=== PATIENT | male | born 1960 | race Hispanic/Latino ===

== ENCOUNTER 2025-05-19 11:18 | Observation (INO) | payer OTHER ==
[~2025-05-19] VITALS: Ht 177.8 cm; Wt 94.3 kg
[2025-05-19 12:01] LABS: IMMATURE GRANULOCYTE ABSOLUTE 0.02 K/uL (0-1); NUCLEATED RED BLOOD CELLS 0.0 % (0.0-0.19); PLATELET COUNT (AUTO) 160 K/uL (130-400); RED BLOOD CELL COUNT(AUTO) 4.62 MIL/uL (4.50-6.20); RED CELL DISTRIBUTION WIDTH 13.2 % (11.0-15.5); WHITE BLOOD COUNT (AUTO) 7.1 K/uL (4.8-10.8)
[2025-05-19] MEDS: MAG/ALUM/SIMETH 30 ML UDCUP PO ONE (12:07)
--- NOTE | 2025-05-19 12:10 | EKG ---
[facility] Test Date: 2025-05-19 Test Time: 11:27:04 Pat Name: SOL RODRÍGUEZ Department: ED Room: 225 Gender: M [employer]afood [employer]or: [id number] : 1960 Requested By: CHRISTIANO GARCIA Order Number: [id number] Reading MD: Thierno Hernandez Measurements Intervals [place] Rate: 47 P: 22 DC: 166 QRS: 4 QRSD: 103 T: -17 QT: 423 QTc: 376 Interpretive Statements Sinus bradycardia No previous ECG available for comparison Electronically Signed On 05-19-2025 20:49:17 CDT by Thierno Hernandez Please click the below link to view image of tracing.
[2025-05-19 12:12] LABS: CREATININE 0.9 mg/dL (0.5-1.3); GLOMERULAR FILTR. RATE CALC 95.0 mL/min (>90); GLUCOSE,RANDOM 104.0 mg/dL (70-105); SODIUM SERUM 139.0 mmol/L (136-145); UREA NITROGEN, BLOOD 19.0 mg/dL (7-18)
[2025-05-19 12:14] LABS: INR 1.04 (0.85-1.15)
[2025-05-19 12:16] LABS: ASPARTATE AMINOTRANSFERASE 30.0 U/L (10-37); TOTAL PROTEIN, SERUM 6.8 g/dL (6.0-8.3)
--- NOTE | 2025-05-19 12:25 | HMCIMG ---
Examination: Chest, 1 view Clinical history: Chest pain Comparison: None Findings: AP view of the chest is submitted. Lungs are clear. No pleural effusion or pneumothorax. Heart size and pulmonary vessels are within normal limits. Impression: No acute cardiopulmonary process. /Holly
--- NOTE | 2025-05-19 14:00 | ERN ---
ED Note History of Present Illness Stated Complaint: BRADYCARDIA Chief Complaint: Bradycardia Time Seen by MD: 11:20 Dictation: 65-year-old male presenting to the emergency department with exertional chest pain epigastric burning over the past two days currently chest pain-free was seen in [facility] and also found to have high risk factors with low HR Allergies: Coded Allergies: No Known Drug Allergies (Unverified Allergy, Unknown, 05/19/25) Past Medical History Past Medical History: Anxiety, Depression, Diverticulosis, Hypertension Surgical History: None Review of System Dictation Constitutional: Negative for fever,chills, and weight loss Eyes: Negative for injury, pain,redness, and discharge ENT: Negative for injury,pain or swelling Cardiovascular: Per HPI Respiratory: Negative for shortness of breath, cough, and wheezing, Abdomen/GI: Negative for abdominal pain, nausea, vomiting, diarrhea, and constip ation Back: Negative for injury and pain : Negative for injury, bleeding and discharge MS/Extremity: Negative for injury and deformity Skin: Negative for rash, and discoloration Neuro: Negative for headache, weakness, numbness, tingling, and seizure Psych: Negative for suicide ideation, homicidal ideation, and hallucinations Initial Vital Sign VS Vital Signs Date Time Temp Pulse Resp B/P (MAP) Pulse Ox O2 Delivery O2 Flow Rate FiO2 05/19/25 11:19 98.1 60 19 152/84 95 Room Air 0 05/19/25 12:24 21 Physical Exam Dictation General: awake, alert, NAD Head/Face: Normocephalic, atraumatic Eyes: PERRL, EOMI, vision at baseline ENT: oral cavity clear, TMs clear, no signs of infection Neck: Trachea midline, supple, no nuchal rigidity Cardiovascular: Bradycardic normal S1/S2, No MRGs, no JVD Respiratory: CTAB, no respiratory distress, No rales or wheezes Abdomen: Soft, non-tender, non-distended, normal bowel sounds, no guarding or r ebound. Skin: Warm, dry, normal turgor, no rash MS/Extremity: Pulses equal, no cyanosis, neurovascular intact, FROM Neuro: COAx4, GCS 15, strength 5/5, CN 2-12 intact, normal cerebellar exam, normal gait, Psych: Normal behavior, mood, and affect normal Results (Laboratory/Radiology) Laboratory/Radiology Laboratory Tests Test 05/19/25 11:54 White Blood Count 7.1 K/uL (4.8-10.8) Red Blood Count 4.62 MIL/uL (4.50-6.20) Hemoglobin 14.7 g/dL (14.0-18.0) Hematocrit 42.3 % (42-54) Mean Corpuscular Volume 91.6 fL (79-99) Mean Corpuscular Hemoglobin 31.8 pg (27.0-33.0) Mean Corpuscular Hemoglobin Concent 34.8 g/dL (32.0-36.0) Red Cell Distribution Width 13.2 % (11.0-15.5) Platelet Count 160 K/uL (130-400) Mean Platelet Volume 10.3 fL (7.5-10.5) Immature Granulocyte % (Auto) 0.3 % (0-1) Neutrophils (%) (Auto) 62.3 % (40.0-77.0) Lymphocytes (%) (Auto) 24.1 % (21.0-51.0) Monocytes (%) (Auto) 11.1 % (3.0-13.0) Eosinophils (%) (Auto) 1.8 % (0.0-8.0) Basophils (%) (Auto) 0.4 % (0.0-5.0) Neutrophils # (Auto) 4.4 K/uL (1.8-7.7) Lymphocytes # (Auto) 1.7 K/uL (1.0-4.8) Monocytes # (Auto) 0.8 K/uL (0.1-1.0) Eosinophils # (Auto) 0.13 K/uL (0.00-0.70) Basophils # (Auto) 0.03 K/uL (0.00-0.20) Absolute Immature Granulocyte (auto 0.02 K/uL (0-1) Nucleated Red Blood Cells 0.0 % (0.0-0.19) Prothrombin Time 11.0 SEC (9.6-11.6) Prothromb Time International Ratio 1.04 (0.85-1.15) Activated Partial Thromboplast Time 25.9 SEC (26.3-35.5) L Sodium Level 139 mmol/L (136-145) Potassium Level 4.3 mmol/L (3.5-5.1) Chloride Level 105 mmol/L (101-111) Carbon Dioxide Level 27 mmol/L (21-32) Blood Urea Nitrogen 19 mg/dL (7-18) H Creatinine 0.9 mg/dL (0.5-1.3) Glomerular Filtration Rate Calc 95 mL/min (>90) Random Glucose 104 mg/dL (70-105) Total Calcium 9.0 mg/dL (8.5-10.1) Magnesium Level 2.00 mg/dL (1.80-2.40) Total Bilirubin 0.8 mg/dL (0.2-1.0) Direct Bilirubin 0.1 mg/dL (0.0-0.3) Aspartate Amino Transf (AST/SGOT) 30 U/L (10-37) Alanine Aminotransferase (ALT/SGPT) 55 U/L (12-78) Alkaline Phosphatase 54 U/L (50-136) Troponin I High Sensitivity 8 ng/L (4-75) B-Type Natriuretic Peptide 21 pg/mL (0-100) Total Protein 6.8 g/dL (6.0-8.3) Albumin 3.4 g/dL (3.5-5.0) L Lipase 23 U/L (16-77) Labs Reviewed?: Yes ED Course ED Course Orders Procedure Category Date Status Time 12 Lead Ekg Tracing- EKG 05/19/25 Complete Technical 11:20 Basic Metabolic Panel LAB 05/19/25 Complete 11:20 Cbc With Differential LAB 05/19/25 Complete 11:20 Hepatic Function Panel LAB 05/19/25 Complete 11:20 Pt And Ptt LAB 05/19/25 Complete 11:20 Troponin I High LAB 05/19/25 Complete Sensitivity 11:20 Chest 1vw RAD 05/19/25 Resulted 11:20 Magnesium LAB 05/19/25 Complete 11:20 B-Type Natriuretic LAB 05/19/25 Complete Peptide 11:20 Lipase LAB 05/19/25 Complete 11:51 Pantoprazole 40mg Inj PHA 05/19/25 Complete (Protonix 40mg Inj 12:00 Mag/Alum/Simeth 30ml PHA 05/19/25 Complete (Maalox Plus 30ml) 12:00 Current Medications Medications (Trade) Dose Ordered Sig/Alfonzo Route PRN Reason Start Time Stop Time Status Last Admin Dose Admin Al Hydroxide/Mg Hydroxide (MAALox PLUS 30ML) 15 ml ONCE ONCE PO 05/19/25 12:00 05/19/25 12:01 DC 05/19/25 12:07 Pantoprazole Sodium (PROTonix 40MG INJ) 40 mg ONCE ONCE IVP 05/19/25 12:00 05/19/25 12:01 DC 05/19/25 12:07 Vital Signs Date Time Temp Pulse Resp B/P (MAP) Pulse Ox O2 Delivery O2 Flow Rate FiO2 05/19/25 12:24 98.1 55 16 150/60 95 Room Air* 0 21 05/19/25 11:19 98.1 60 19 152/84 95 Room Air 0 Medical Decision Making MDM MDM: Differential diagnosis: Rationale: Tests considered and ordered secondary to shared decision making include: labs, ECG and radiology Previous outside records reviewed: Old ER visits. Risk of complication and/or morbidity or mortality of patient management: None Medications-Per medication reconciliation Need for hospitalization: Patient does meet criteria for hospitalization. Need for emergency major/minor surgery: No There are no social concerns with this patient. Prescription drug management Prescriptions will include symptomatic care Patient's prior external medical records from other ER visits were reviewed by me as indicated. Prior testing and results from previous visits were reviewed. Prior tests were taken into account with medical decision making and resource ut ilization, independent historian/historians were used to obtain complete medical history. I independently interpreted the test that were performed, results were reviewed by me and considered findings on radiology if ordered. Medical management and examination interpretation discussions were had by me with other qualified healthcare professionals as indicated for the patient's car e. 65-year-old male with chest pain and bradycardia hemodynamically stable chest pain-free now admitting to Medicine for further care and evaluation. DX & DISP Disposition: Inpatient Departure Impression: Primary Impression: Bradycardia Additional Impression: Angina pectoris Condition: Stable Referrals: MOODY MOCTEZUMA MD (PCP) CHRISTIANO GARCIA MD May 19, 2025 14:00
[2025-05-19] MEDS ORDERED: DICYCLOMINE HCL 20 MG TAB PO PRN (14:30)
--- NOTE | 2025-05-19 14:33 | HP ---
[facility] PHYS[facility] Date of Service: May 19, 2025 Time of Service: 14:08 HISTORY OF PRESENT ILLNESS: [ ] admission Date: 05/19/25 PCP: [facility] DR Diaz chief complaints: epigastric pain associate with chest pain This is a 65-year-old male that presents in ED with chief complaints of epigastric discomfort patient has history of severe GERD intake omeprazole. Significant medical history of hypertension hyperlipidemia takes losartan 100 mg p.o. daily and atorvastatin 20 mg at bedtime. denies dizziness, palpitation, GI disturbance, lower extremity edema.. Patient reports getting winded he walked 30 ft to and from in experienced some shortness a breath. Patient reports having cardiac workup done over two years ago when he was diagnosed of hyp ertensive. REVIEW OF SYSTEMS CONSTITUTIONAL: Denies fevers, chills, or night sweats. No unintentional weight loss reported. NEUROLOGICAL: Denies headache, amaurosis fugax, motor weakness, sensory deficit, vertigo/spinning sensation, gait abnormalities, or tremors. ENT: No hearing loss, otalgia, otorrhea, rhinitis, rhinorrhea, hoarseness, or sore throat. CARDIOVASCULAR: Denies any exertional angina, dyspnea on exertion, orthopnea, paroxysmal nocturnal dyspnea, palpitations, life-threatening arrhythmias, claudication. PULMONARY: Denies any shortness of breath, cough, phlegm/sputum, hemoptysis, pleuritic chest pain. SLEEP: Denies morning headaches, daytime somnolence or napping. Denies difficulty falling asleep, staying asleep, waking from sleep. Denies knowledge of snoring. GASTROINTESTINAL: Denies any type of dysphagia to either liquids or solids. Denies nausea, vomiting, pyrosis, early satiety, abdominal pain, diarrhea, constipation, or changes in stool consistency or caliber. Denies coffee-ground emesis, hematemesis, hematochezia, or melanotic stools. GENITOURINARY: Denies frequency, urgency, nocturia, hematuria or incontinence (Storage/Irritative symptoms.) Low urinary stream, straining to void, urinary intermittency or hesitancy, splitting of the voiding stream, terminal dribbling. ENDOCRINOLOGIC: Denies polyuria, polydipsia, polyphagia or heat/cold intolerances. HEMATOLOGIC: Denies thrombophilia/previous clots, or coagulopathy/bleeding disorders. ONCOLOGIC: Denies personal history of malignancy. DERMATOLOGIC: Denies rashes or pruritus. PSYCHIATRIC: Denies any suicidal or homicidal ideation. Denies hallucinations. PAST MEDICAL HISTORY: [ ]refer to HPI PAST SURGICAL HISTORY: [ ] Foot surgery PAST SOCIAL HISTORY: [ ] Denies smoking tobacco products and alcohol use lives with spouse. FAMILY HISTORY: [ ] Heart disease Coded Allergies: No Known Drug Allergies (Unverified Allergy, Unknown, 05/19/25) PHYSICAL EXAM GENERAL APPEARANCE: The patient is awake, alert, and oriented, in no acute cardiopulmonary distress. NEUROLOGICAL: Cranial nerves II-XII grossly intact. Motor is 5/5 in bilateral upper and lower extremities proximal to distal. No sensory deficits. HEENT: Face is symmetric. Pupils are equal and reactive. Extraocular movements are intact. NECK: Supple. No JVD. No thyromegaly. No submental, submandibular, pre- /postauricular, occipital or supraclavicular lymphadenopathy. CHEST: Normal chest expansion. No Telemetry. LUNGS: Absence of any rales, rhonchi or any wheezing. CARDIOVASCULAR: Regular. S1 and S2 normal. No appreciable rubs, murmurs or gallops. ABDOMEN: Soft, nontender, and nondistended. There is no rebound, voluntary guarding, or rigidity. : Deferred. No Drum[place]. EXTREMITIES: Non-edematous and not cyanotic. No clubbing. Good capillary refill. SKIN: No skin breakdown. Vital Sign (Last 24 Hours) 05/19/25 14:03 Temp 98.1 Pulse 49 Resp 16 B/P (MAP) 149/53 Pulse Ox 95 O2 Delivery Room Air* O2 Flow Rate 0 FiO2 21 LABS: Laboratory: Test 05/19/25 11:54 Range/Units White Blood Count 7.1 4.8-10.8 K/uL Red Blood Count 4.62 4.50-6.20 MIL/uL Hemoglobin 14.7 14.0-18.0 g/dL Hematocrit 42.3 42-54 % Mean Corpuscular Volume 91.6 79-99 fL Mean Corpuscular Hemoglobin 31.8 27.0-33.0 pg Mean Corpuscular Hemoglobin Concent 34.8 32.0-36.0 g/dL Red Cell Distribution Width 13.2 11.0-15.5 % Platelet Count 160 130-400 K/uL Mean Platelet Volume 10.3 7.5-10.5 fL Immature Granulocyte % (Auto) 0.3 0-1 % Neutrophils (%) (Auto) 62.3 40.0-77.0 % Lymphocytes (%) (Auto) 24.1 21.0-51.0 % Monocytes (%) (Auto) 11.1 3.0-13.0 % Eosinophils (%) (Auto) 1.8 0.0-8.0 % Basophils (%) (Auto) 0.4 0.0-5.0 % Neutrophils # (Auto) 4.4 1.8-7.7 K/uL Lymphocytes # (Auto) 1.7 1.0-4.8 K/uL Monocytes # (Auto) 0.8 0.1-1.0 K/uL Eosinophils # (Auto) 0.13 0.00-0.70 K/uL Basophils # (Auto) 0.03 0.00-0.20 K/uL Absolute Immature Granulocyte (auto 0.02 0-1 K/uL Nucleated Red Blood Cells 0.0 0.0-0.19 % Prothrombin Time 11.0 9.6-11.6 SEC Prothromb Time International Ratio 1.04 0.85-1.15 Activated Partial Thromboplast Time 25.9 L 26.3-35.5 SEC Sodium Level 139 136-145 mmol/L Potassium Level 4.3 3.5-5.1 mmol/L Chloride Level 105 101-111 mmol/L Carbon Dioxide Level 27 21-32 mmol/L Blood Urea Nitrogen 19 H 7-18 mg/dL Creatinine 0.9 0.5-1.3 mg/dL Glomerular Filtration Rate Calc 95 >90 mL/min Random Glucose 104 70-105 mg/dL Total Calcium 9.0 8.5-10.1 mg/dL Magnesium Level 2.00 1.80-2.40 mg/dL Total Bilirubin 0.8 0.2-1.0 mg/dL Direct Bilirubin 0.1 0.0-0.3 mg/dL Aspartate Amino Transf (AST/SGOT) 30 10-37 U/L Alanine Aminotransferase (ALT/SGPT) 55 12-78 U/L Alkaline Phosphatase 54 50-136 U/L Troponin I High Sensitivity 8 4-75 ng/L B-Type Natriuretic Peptide 21 0-100 pg/mL Total Protein 6.8 6.0-8.3 g/dL Albumin 3.4 L 3.5-5.0 g/dL Lipase 23 16-77 U/L DIAGNOSTICS / RADIOLOGY: [ ] ASSESSMENT: Atypical Chest pain POA Symptomatic bradycardia POA Severe GERD POA Epigastric pain secondary to GERD POA Chronic problems: Anxiety, Depression, Diverticulosis, Hypertension Allergies: no Known Drug Allergies PLAN: Admit: medical with Tele condition: Guarded Status: Full Code IVF: [facility] Nitroglycerin 0.4 mg sublingual as directed for chest pain Imaging: Echo to evaluate LV function Labs cbc, cmp, mag+ TSH, Lipid panel Replace electrolytes as needed as per protocol to keep potassium above 4.0 magnesium 2.0. PPIs Protonix 40 mg IV twice a day Home medications reviewed and reconciled PRN: MEDICATIONS Tylenol 650 mg po every 4 hrs for fever Zofran 4 mg IV every 6 hrs for n/v Hydralazine 5 mg IV every 4 hrs systolic pressure > 160 bowel regiment: lactulose 20 gm PO BID PRN constipation Pain management: Dicyclomine Hcl 20 mg four time daily Supportive measures: DVT ppx, GI ppx all questions answered time spent: > 35 min Supervising MD: Dr.Elahi Mortensen c/d This document was generated in part using voice recognition software, occasional wrong word or sound alike substitutions may have occurred due to the inherent limitations of voice recognition software. Read the chart carefully and recognize using context, where the substitutions have occurred. Although every effort was made to edit the content, protection agent and typing errors may occur ADVANCED CARE PLANNING 1. Which of the following were discussed? Hospice Care - Yes / No Therapeutic options - Yes / No Advance Directives - Yes / No Other discussions - 2. Discussed with who? 3. Voluntary nature of this service was explained to the patient? Yes / No 4. Amount of time spent - 5. Reviewed by Physician? (if this service was performed by NPP) Yes / No ATTESTATION BY PHYSICIAN I have seen and examined the patient. I reviewed the documentation, medical decision making, and treatment plan as noted by the mid-level provider above. I agree with the findings and plan of care. MELANIA WALDRON MD, [facility] [employer]INE PRECISION ENGRAVER May 19, 2025 14:33
[2025-05-19] MEDS ORDERED: NITROGLYCERIN 0.4 MG SL TAB SL PRN (15:00)
[2025-05-19] MEDS ORDERED: OMEP40CA21 PO (15:06)
[2025-05-19] MEDS ORDERED: ATOR10 PO (15:06)
[2025-05-19] MEDS ORDERED: LOSA100T59 PO (15:06)
[2025-05-19] MEDS: DICYCLOMINE HCL 10 MG/5 ML ML PO ONE (15:27)
--- NOTE | 2025-05-19 18:34 | NUR ---
CALLED TO GIVE REPORT FOR ROOM NUMBER 225 NO ANSWER
[2025-05-19 20:30] VITALS: O2SAT 97
--- NOTE | 2025-05-19 20:48 | CONS ---
CONSULT NOTE: CARDIOLOGY Reason for consult: Chest pain HPI/story at presentation: This is a pleasant 65-year-old male with past medical history presents with complaints of atypical chest discomfort, burning sensation in his chest as sociated with exertion in the setting of risk factors. Was having issues with bradycardia, exertional shortness of breath as well. Cardiology was consulted for further evaluation management. Subjective: 05/19/2025 no active chest pain Past medical history: See below Allergies, Meds See chart Review of systems Review of Systems Constitutional: Negative for chills and fever. HENT: Negative for ear discharge and ear pain. Eyes: Negative for photophobia and discharge. Respiratory: Negative for cough, sputum production and stridor. Cardiovascular: Negative for chest pain and palpitations. Gastrointestinal: Negative for diarrhea and vomiting. Genitourinary: Negative for frequency. Musculoskeletal: Negative for myalgias. Skin: Negative for rash. Neurological: Negative for focal weakness and seizures. Endo/Heme/Allergies: Negative for polydipsia. Psychiatric/Behavioral: Negative for hallucinations. Vitals see chart PHYSICAL EXAMINATION GENERAL: The patient is alert and oriented*3 HEENT: Nonicteric sclerae, non traumatic HEART: Regular rate and rhythm with no murmurs LUNGS: Clear to auscultation bilaterally ABDOMEN: No acute issues, non tender GENITAL, RECTAL: deferred SKIN: No rash NEUROLOGIC: NFND EXTREMITIES: No edema ASSESSMENT CHEST PAIN Of burning sensation associated with exertion Strong family history of heart disease Previous history of hypertension Associated shortness of breath with exertion as well BRADYCARDIA Previous history of bradycardia heart rates in the 40s Current rates in the 50s, reportedly asymptomatic\ HYPERTENSION, HYPERLIPIDEMIA CORE MEASURES Pending OTHER MEDICAL PROBLEMS Reviewed PLAN 05/19/2025 no active cardiac complaints at this time. Will further risk stratify with a stress test tomorrow, will make this an exercise SPECT stress to also make this into an assessment of chronotropic competence as well. Echocardiogram pending. ATTESTATION I was involved substantially in the care of this patient Number and complexity of problems addressed: 1 acute illness with systemic features Amount and or complexity of data Review of prior external note(s) from each unique source: 2+ Ordering of each unique test : 0 Review of the result(s) of each unique test: 2+ Assessment requiring an independent historian(s): No Independent interpretation of test performed by another MD/QHCP/appropriate source (not separately reported) : No Discussion of management or test interpretation with external MD/QHCP/appropriate source (not separately reported) : No Risk status (cardiac, billing related): Moderate JEANETTE RAPHAEL MD May 19, 2025 20:48
[2025-05-19 21:01] VITALS: BP 143/71; PULSE 51; RESP 18; TEMP 97.8
--- NOTE | 2025-05-19 21:14 | HMCSR ---
APPROVED REPORT EXAM: Two-dimensional and M-mode echocardiogram with Doppler and color Doppler. INDICATION ICD: Bradycardia R00.1 2D Dimensions RVDd4.4 cmLVEF(%)55.8 (>50%)LVED Vol(simp.)126.0 mL IVSd0.7 (0.7-1.1cm)FS(%)29 %LVES Vol(simp.)46.0 mL LVDd5.0 (3.8-5.6cm)LA (2D)4.1 (1.6-4.0cm)LVEF(%, simp.)63 % PWd0.7 (0.7-1.1cm)Ao Root(2D)3.1 (2.0-3.7cm)LA ESV INDEX (BP)29.84 mL/m2 IVSs1.1 cmLVOT diam2.4 (1.8-2.4cm) LVDs3.5 (2.5-4.0cm)IVC diam2.0 cm PWs1.2 cm Deformation Strain Apical 4-19.6 % Apical 2-22.7 % Apical 3-20.1 % Global Strain-20.8 % M-Mode Dimensions EPSS0.6 cm LA (MM)4.1 (1.6-4.0cm) Ao Root(MM)3.1 (2.0-3.7cm) Aortic Valve AoV Vmax1.4 m/Sreedhar Peak GR7.5 mmHgLVOT Vmax0.9 m/s AoV VTI0.3 mAo Mean GR4.1 mmHgLVOT VTI0.19 m IVETT (VMAX)2.84 cm2AVA (VTI) 3.0 cm2 Mitral Valve MV E Vmax91.9 cm/sDECEL Xepb730 ms MV A Vmax76.9 cm/sP 1/2 T61 ms E/A ratio1.2MVA (PHT)3.6 cm2 TDI E/E' Medial8.8E/E' Lateral9.0 Medial E' Peak V10.49 cm/sLateral E' Peak V10.17 cm/s Pulmonary Valve PV Vmax1.5 m/sPV VTI0.35 mPV Mean GR4.7 mmHg PV Peak GR8.5 mmHg Tricuspid Valve TR Vmax1.9 m/sRAP (EST) 8 owOhRTVU37.5 mmHg TR Peak GR14.5 mmHg Left Ventricle The left ventricle is normal size. Normal wall motion There is normal left ventricular wall thickness . LVEF is 60-65%. The left ventricular diastolic function is normal. Right Ventricle The right ventricle is mildly dilated. The right ventricular systolic function is normal. Atria The left atrium size is normal. The right atrium size is normal. Aortic Valve The aortic valve is normal in structure. No aortic regurgitation is present. There is no aortic valvu lar stenosis. Mitral Valve The mitral valve is normal in structure. There is trace of mitral valve regurgitation noted. There is no mitral valve stenosis. Tricuspid Valve The tricuspid valve is normal in structure. There is no tricuspid valve regurgitation noted. Pulmonic Valve The pulmonary valve is normal in structure. There is no pulmonic valvular regurgitation. Great Vessels The aortic root is normal in size. IVC is not well visualized. Pericardium There is no pericardial effusion. Other Information Quality : Adequate Conclusion LVEF is 60-65%. The left ventricular diastolic function is normal. There is normal left ventricular wall thickness. The left ventricle is normal size. Normal wall motion The right ventricle is mildly dilated. There is no pericardial effusion. Normal pulmonary pressures Study quality was adequate
[2025-05-19 23:18] VITALS: BP 144/70; PULSE 48; RESP 18; TEMP 98
[2025-05-20 03:42] VITALS: BP 148/68; PULSE 50; RESP 18; TEMP 97.8
[2025-05-20 04:52] LABS: IMMATURE GRANULOCYTE ABSOLUTE 0.03 K/uL (0-1); NUCLEATED RED BLOOD CELLS 0.0 % (0.0-0.19); PLATELET COUNT (AUTO) 160 K/uL (130-400); RED BLOOD CELL COUNT(AUTO) 4.36 MIL/uL (4.50-6.20); RED CELL DISTRIBUTION WIDTH 13.1 % (11.0-15.5); WHITE BLOOD COUNT (AUTO) 7.9 K/uL (4.8-10.8)
[2025-05-20 05:45] LABS: ASPARTATE AMINOTRANSFERASE 26.0 U/L (10-37); CREATININE 1.3 mg/dL (0.5-1.3); GLOMERULAR FILTR. RATE CALC 61.0 mL/min (>90); GLUCOSE,RANDOM 121.0 mg/dL (70-105); LDL DIRECT 74.0 mg/dL (0-99); SODIUM SERUM 141.0 mmol/L (136-145); TOTAL PROTEIN, SERUM 6.1 g/dL (6.0-8.3); UREA NITROGEN, BLOOD 22.0 mg/dL (7-18)
[2025-05-20 07:00] VITALS: BP 135/70; PULSE 51; RESP 20; TEMP 97.4
--- NOTE | 2025-05-20 09:30 | NUR ---
Service Connections Patient is service connected for SNF if needed.
[2025-05-20 11:00] VITALS: BP 126/71; PULSE 67; RESP 20; TEMP 97.9
--- NOTE | 2025-05-20 11:51 | NUR ---
DCP: HOME met with pt and his Z[address]. Pt pending second part of stress test and results, he reported. Pt is a [place] and is seen at [place] by [facility] Argueta for medical care and meds. Prior o admission, pt states he used his cane and CPAP, is able to compete ADLS on his own, no HH or provider services needed at this time. Pt drives self as needed. DCP is home family to transport Addendum: 05/20/25 at 1159 by NIK JOSÉ Amended: Links added.
--- NOTE | 2025-05-20 13:12 | PN ---
[facility] PROGRESS NOTE Date of Service: May 20, 2025 Time of Service: 13:06 SUBJECTIVE: [ ] admission Date: 05/19/25 PCP: [facility] DR Diaz chief complaints: epigastric pain associate with chest pain This is a 65-year-old male that presents in ED with chief complaints of epigastric discomfort patient has history of severe GERD intake omeprazole. Significant medical history of hypertension hyperlipidemia takes losartan 100 mg p.o. daily and atorvastatin 20 mg at bedtime. denies dizziness, palpitation, GI disturbance, lower extremity edema.. Patient reports getting winded he walked 30 ft to and from in experienced some shortness a breath. Patient reports having cardiac workup done over two years ago when he was diagnosed of hypertensive. 05/20/25 primary nurse reports no events overnight. Patient on 2nd phase of stress test. No change pain reported. Possible dischar is negative.dischargeded if Lexiscan REVIEW OF SYSTEMS CONSTITUTIONAL: Denies fevers, chills, or night sweats. No unintentional weight loss reported. NEUROLOGICAL: Denies headache, amaurosis fugax, motor weakness, sensory deficit, vertigo/spinning sensation, gait abnormalities, or tremors. ENT: No hearing loss, otalgia, otorrhea, rhinitis, rhinorrhea, hoarseness, or sore throat. CARDIOVASCULAR: Denies any exertional angina, dyspnea on exertion, orthopnea, paroxysmal nocturnal dyspnea, palpitations, life-threatening arrhythmias, claudication. PULMONARY: Denies any shortness of breath, cough, phlegm/sputum, hemoptysis, pleuritic chest pain. SLEEP: Denies morning headaches, daytime somnolence or napping. Denies diffi culty falling asleep, staying asleep, waking from sleep. Denies knowledge of snoring. GASTROINTESTINAL: Denies any type of dysphagia to either liquids or solids. Denies nausea, vomiting, pyrosis, early satiety, abdominal pain, diarrhea, constipation, or changes in stool consistency or caliber. Denies coffee-ground emesis, hematemesis, hematochezia, or melanotic stools. GENITOURINARY: Denies frequency, urgency, nocturia, hematuria or incontinence (Storage/Irritative symptoms.) Low urinary stream, straining to void, urinary intermittency or hesitancy, splitting of the voiding stream, terminal dribbling. ENDOCRINOLOGIC: Denies polyuria, polydipsia, polyphagia or heat/cold int olerances. HEMATOLOGIC: Denies thrombophilia/previous clots, or coagulopathy/bleeding disorders. ONCOLOGIC: Denies personal history of malignancy. DERMATOLOGIC: Denies rashes or pruritus. PSYCHIATRIC: Denies any suicidal or homicidal ideation. Denies hallucinations. PHYSICAL EXAM GENERAL APPEARANCE: The patient is awake, alert, and oriented, in no acute cardiopulmonary distress. NEUROLOGICAL: Cranial nerves II-XII grossly intact. Motor is 5/5 in bilateral upper and lower extremities proximal to distal. No sensory deficits. HEENT: Face is symmetric. Pupils are equal and reactive. Extraocular movements are intact. NECK: Supple. No JVD. No thyromegaly. No submental, submandibular, pre- /postauricular, occipital or supraclavicular lymphadenopathy. CHEST: Normal chest expansion. No Telemetry. LUNGS: Absence of any rales, rhonchi or any wheezing. CARDIOVASCULAR: Regular. S1 and S2 normal. No appreciable rubs, murmurs or gallops. ABDOMEN: Soft, nontender, and nondistended. There is no rebound, voluntary guarding, or rigidity. : Deferred. No Drummond. EXTREMITIES: Non-edematous and not cyanotic. No clubbing. Good capillary refill. SKIN: No skin breakdown. Vital Signs (last 8hr) Date Time Temp Pulse Resp B/P (MAP) Pulse Ox O2 Delivery O2 Flow Rate FiO2 05/20/25 11:00 97.9 67 20 126/71 98 Room Air 05/20/25 07:00 97.3 51 20 135/70 99 Room Air LABS: Laboratory: Test 05/20/25 04:06 05/19/25 23:13 05/19/25 11:54 Range/Units White Blood Count 7.9 4.8-10.8 K/uL Red Blood Count 4.36 L 4.50-6.20 MIL/uL Hemoglobin 13.7 L 14.0-18.0 g/dL Hematocrit 39.6 L 42-54 % Mean Corpuscular Volume 90.8 79-99 fL Mean Corpuscular Hemoglobin 31.4 27.0-33.0 pg Mean Corpuscular Hemoglobin Concent 34.6 32.0-36.0 g/dL Red Cell Distribution Width 13.1 11.0-15.5 % Platelet Count 160 130-400 K/uL Mean Platelet Volume 10.4 7.5-10.5 fL Immature Granulocyte % (Auto) 0.4 0-1 % Neutrophils (%) (Auto) 56.9 40.0-77.0 % Lymphocytes (%) (Auto) 26.1 21.0-51.0 % Monocytes (%) (Auto) 12.5 3.0-13.0 % Eosinophils (%) (Auto) 3.7 0.0-8.0 % Basophils (%) (Auto) 0.4 0.0-5.0 % Neutrophils # (Auto) 4.5 1.8-7.7 K/uL Lymphocytes # (Auto) 2.1 1.0-4.8 K/uL Monocytes # (Auto) 1.0 0.1-1.0 K/uL Eosinophils # (Auto) 0.29 0.00-0.70 K/uL Basophils # (Auto) 0.03 0.00-0.20 K/uL Absolute Immature Granulocyte (auto 0.03 0-1 K/uL Nucleated Red Blood Cells 0.0 0.0-0.19 % Sodium Level 141 136-145 mmol/L Potassium Level 4.6 3.5-5.1 mmol/L Chloride Level 105 101-111 mmol/L Carbon Dioxide Level 33 H 21-32 mmol/L Blood Urea Nitrogen 22 H 7-18 mg/dL Creatinine 1.3 0.5-1.3 mg/dL Glomerular Filtration Rate Calc 61 >90 mL/min Random Glucose 121 H 70-105 mg/dL Total Calcium 8.6 8.5-10.1 mg/dL Magnesium Level 2.00 1.80-2.40 mg/dL Total Bilirubin 0.6 # 0.2-1.0 mg/dL Aspartate Amino Transf (AST/SGOT) 26 10-37 U/L Alanine Aminotransferase (ALT/SGPT) 49 12-78 U/L Alkaline Phosphatase 48 L 50-136 U/L Total Protein 6.1 6.0-8.3 g/dL Albumin 2.9 L 3.5-5.0 g/dL Triglycerides Level 123 30-200 mg/dL Cholesterol Level 120 <200 mg/dL LDL Cholesterol 74 0-99 mg/dL HDL Cholesterol 30 29-71 mg/dL Thyroid Stimulating Hormone (TSH) 1.65 0.36-3.74 uIU/mL Troponin I High Sensitivity 21 4-75 ng/L Prothrombin Time 11.0 9.6-11.6 SEC Prothromb Time International Ratio 1.04 0.85-1.15 Activated Partial Thromboplast Time 25.9 L 26.3-35.5 SEC Direct Bilirubin 0.1 0.0-0.3 mg/dL B-Type Natriuretic Peptide 21 0-100 pg/mL Lipase 23 16-77 U/L Current Medications Medications (Trade) Dose Ordered Sig/Alfonzo Route PRN Reason Start Time Stop Time Status Last Admin Dose Admin Atorvastatin Calcium (LIPItor 20MG) 20 mg HS PO 05/19/25 21:00 06/18/25 20:59 05/19/25 21:28 20 MG Dicyclomine HCl (Bentyl 20mg Tab) 20 mg QID PRN PO abd pain 05/19/25 14:30 06/18/25 14:29 Losartan Potassium (CozAAR 100MG TAB) 100 mg DAILY PO 05/20/25 09:00 06/19/25 08:59 05/20/25 08:36 100 MG Nitroglycerin (Nitrostat) 0.4 mg AD PRN SL CHEST PAIN 05/19/25 15:00 06/18/25 14:59 Pantoprazole Sodium (PROTonix 40MG INJ) 40 mg BID IVP 05/19/25 21:00 06/18/25 20:59 05/20/25 08:36 40 MG DIAGNOSTICS / RADIOLOGY: [ ] ASSESSMENT: Atypical Chest pain POA Symptomatic bradycardia POA Severe GERD POA Epigastric pain secondary to GERD POA Chronic problems: Anxiety, Depression, Diverticulosis, Hypertension Allergies: no Known Drug Allergies PLAN: Admit: medical with Tele condition: Guarded Status: Full Code IVF: [facility] Nitroglycerin 0.4 mg sublingual as directed for chest pain Imaging: Echo noted normal EF 60-65% Labs cbc, cmp, mag+ TSH, Lipid panel Replace electrolytes as needed as per protocol to keep potassium above 4.0 magnesium 2.0. PPIs Protonix 40 mg IV twice a day Home medications reviewed and reconciled PRN: MEDICATIONS Tylenol 650 mg po every 4 hrs for fever Zofran 4 mg IV every 6 hrs for n/v Hydralazine 5 mg IV every 4 hrs systolic pressure > 160 bowel regiment: lactulose 20 gm PO BID PRN constipation Supportive measures: DVT ppx, GI ppx all questions answered time spent: > 35 min Supervising MD: Dr.Elahi Mortensen c/d This document was generated in part using voice recognition software, occasional wrong word or sound alike substitutions may have occurred due to the inherent limitations of voice recognition software. Read the chart carefully and recognize using context, where the substitutions have occurred. Although every effort was made to edit the content, fruit farmworker and typing errors may occur ATTESTATION BY PHYSICIAN I have seen and examined the patient. I reviewed the documentation, medical decision making, and treatment plan as noted by the mid-level provider above. I agree with the findings and plan of care. MELANIA WALDRON MD, ELIZABETH NP May 20, 2025 13:12
[2025-05-20 13:16] VITALS: O2SAT 97
[2025-05-20 16:00] VITALS: BP 142/75; PULSE 54; RESP 20; TEMP 97.9
--- NOTE | 2025-05-20 16:30 | HMCSR ---
APPROVED REPORT Height: 5 ft 10in Weight: 214 lbs TEST INDICATIONS Chest Pain The imaging protocol used to acquire images was Rest Tc-99m/stress Tc-99m 1 day Consent: The procedure was explained and understood by the patient. Informerd consent was witnessed Kaya Dee (N)(ARRT) First, low dose rest was performed then high dose stress. RESTING DATA: The resting ekg shows: NSR Rest SPECT myocardial perfusion imaging was performed in supine position minutes following the intra venous injection of 12 mCi of Tc-99 Sestamibi. Time of rest injection: 08:35: Date: 05/20/2025 EXERCISE STRESS: At peak stress, the patient was injected intravenously with 30mCi of Tc-99 Sestamibi. Time of stress injection: 10:15: Date: 05/20/2025 Heart Rate at time of stress injection: 132 bpm. Patient continued to exercise for 2 minute(s). Gated Stress SPECT was performed 60 minutes after stress injection. The images were gated to evaluate regional wall motion and calculate left ventricular ejection fracti on. STRESS DETAILS Reason for Termination: Infusion complete Stress Symptoms: No chest pain or symptoms Max HR Achieved: 152 bpm % of APMHR Achieved: 115 Max Blood Pressure: 206/42 mmHg Exercise duration: 8 min Highest Stage Achieved: Stage 3: 3.4 mph at 14% grade. Stress ECG: NSR LV PERFUSION Evidence of reverse redistribution artifact of the inferior wall and apex. No evidence of ischemia p resent. Ejection fraction 65% Low risk stress test as above. Conclusion Evidence of reverse redistribution artifact of the inferior wall and apex. No evidence of ischemia p resent. Ejection fraction 65% Low risk stress test as above.
--- NOTE | 2025-05-20 16:39 | PN ---
[facility] 05/20/25 1639: CONSULT NOTE: CARDIOLOGY Reason for consult: Chest pain HPI/story at presentation: This is a pleasant 65-year-old male with past medical history presents with complaints of atypical chest discomfort, burning sensation in his chest associated with exertion in the setting of risk factors. Was having issues with bradycardia, exertional shortness of breath as well. Cardiology was consulted for further evaluation management. 05/20/2025 No complaints Subjective: 05/19/2025 no active chest pain Past medical history: See below Allergies, Meds See chart Review of systems Review of Systems Constitutional: Negative for chills and fever. HENT: Negative for ear discharge and ear pain. Eyes: Negative for photophobia and discharge. Respiratory: Negative for cough, sputum production and stridor. Cardiovascular: Negative for chest pain and palpitations. Gastrointestinal: Negative for diarrhea and vomiting. Genitourinary: Negative for frequency. Musculoskeletal: Negative for myalgias. Skin: Negative for rash. Neurological: Negative for focal weakness and seizures. Endo/Heme/Allergies: Negative for polydipsia. Psychiatric/Behavioral: Negative for hallucinations. Vitals see chart PHYSICAL EXAMINATION GENERAL: The patient is alert and oriented*3 HEENT: Nonicteric sclerae, non traumatic HEART: Regular rate and rhythm with no murmurs LUNGS: Clear to auscultation bilaterally ABDOMEN: No acute issues, non tender GENITAL, RECTAL: deferred SKIN: No rash NEUROLOGIC: NFND EXTREMITIES: No edema ASSESSMENT CHEST PAIN Of burning sensation associated with exertion Strong family history of heart disease Previous history of hypertension Associated shortness of breath with exertion as well BRADYCARDIA Previous history of bradycardia heart rates in the 40s Current rates in the 50s, reportedly asymptomatic\ HYPERTENSION, HYPERLIPIDEMIA CORE MEASURES Pending OTHER MEDICAL PROBLEMS Reviewed PLAN 05/19/2025 no active cardiac complaints at this time. Will further risk stratify with a stress test tomorrow, will make this an exercise SPECT stress to also make this into an assessment of chronotropic competence as well. Echocardiogram pending. 05/20/2025 Underwent stress test today with results of low risk study Cleared for discharge from cardiology standpoint Recommend follow up in 1-2 weeks ATTESTATION Case Discussed with Dr. Brasher Vitals/Labs Vital Signs Date Time Temp Pulse Resp B/P (MAP) Pulse Ox O2 Delivery O2 Flow Rate FiO2 05/20/25 13:16 97 Room Air* 0 21 8/26/25 11:00 97.9 67 20 126/71 Laboratory Tests 05/20/25 04:06 Medications Current Medications Pantoprazole Sodium 40 mg ONCE ONCE IVP Last administered on 05/19/25at 12:07; Start 05/19/25 at 12:00; Stop 05/19/25 at 12:01; Status DC Al Hydroxide/Mg Hydroxide 15 ml ONCE ONCE PO Last administered on 05/19/25at 12:07; Start 05/19/25 at 12:00; Stop 05/19/25 at 12:01; Status DC Pantoprazole Sodium 40 mg BID IVP Last administered on 05/20/25at 08:36; Start 05/19/25 at 21:00; Stop 06/18/25 at 20:59 Dicyclomine HCl 10 mg ONCE ONCE PO Last administered on 05/19/25at 15:27; Start 05/19/25 at 14:30; Stop 05/19/25 at 14:31; Status DC Dicyclomine HCl 20 mg QID PRN PO; Start 05/19/25 at 14:30; Stop 06/18/25 at 14:29 Nitroglycerin 0.4 mg AD PRN SL; Start 05/19/25 at 15:00; Stop 06/18/25 at 14:59 Atorvastatin Calcium 20 mg HS PO Last administered on 05/19/25at 21:28; Start 05/19/25 at 21:00; Stop 06/18/25 at 20:59 Losartan Potassium 100 mg DAILY PO Last administered on 05/20/25at 08:36; Start 05/20/25 at 09:00; Stop 06/19/25 at 08:59 JEANETTE RAPHAEL MD 05/21/25 0017: : Seen by RADHA PONCE May 20, 2025 16:39 JEANETTE RAPHAEL MD May 21, 2025 00:17
== END 2025-05-20 16:50 | disposition home or self-care (01) ==
LOC: EDH 11:18 → INTOOBSV 14:08 → EDHIP 14:08 → 2DH 20:15
PROVIDERS: ADMIT Internal Medicine; ATTEND Internal Medicine
DX: R07.89 Other chest pain (principal); K21.9 Gastro-esophageal reflux disease without esophagitis; I10 Essential (primary) hypertension; E78.5 Hyperlipidemia, unspecified; F41.9 Anxiety disorder, unspecified; F32.A Depression, unspecified; R00.1 Bradycardia, unspecified; Z79.899 Other long term (current) drug therapy; Z98.890 Other specified postprocedural states
CPT/HCPCS: 96376 ×2; 99285; 80076; 83735 ×2; 84484 ×3; 80048; 83880; 83690; 85025 ×2; 85610; 85730; 36415 ×2; 71045; 93017; 78452; 93306; 93356; 96374; 93005; 84443; 80061; 80053; G0378 ×27; J2470 ×3; A9500 ×2